=== PATIENT | female | born 1985 | race Caucasian/White ===

== ENCOUNTER 2016-05-09 20:25 | Emergency (ER) | payer BC, OTHER ==
[2016-05-09 20:36] VITALS: TEMP 97.5; BMI 33.4
[2016-05-09] MEDS ORDERED: ONDANSETRON 4 MG/2 ML VIAL IVPUSH ONE ×2 (20:40→20:46)
[2016-05-09] MEDS ORDERED: SODIUM CHLORIDE 1,000 ML IV ONE ×2 (20:41→20:49)
[2016-05-09] MEDS ORDERED: ONDANSETRON 4 MG/2 ML VIAL ONE ×2 (20:42→20:44)
--- NOTE | 2016-05-09 20:49 | PDOC ---
History of Present Illness - General History Source: Patient Exam Limitations: No Limitations - History of Present Illness Initial Comments: 05/09/16 21:27 The patient is a 31 year old female, with no significant past medical history who presents to the emergency department with nausea and vomiting for about 3 days. She reports having multiple episode of vomiting and diarrhea. She reports noting some blood in her vomiting yesterday. She reports she has been unable to keep down any liquids or solids secondary to her vomiting. She reports also having abdominal pain which she ranks a 5/10 in pain intensity. The patient also reports since 04/21/15 having a productive cough (bringing up yellow/ brownish fluid) that has not been alleviated with prednisone as prescribed by her PCP. She denies chills, headache and dizziness. She denies diarrhea and constipation. Reports her last bowel movement was normal. PAST SURGICAL HISTORY: No significant history. FAMILY HISTORY: No pertinent history. SOCIAL HISTORY: Patient lives with family and is employed. MEDICATIONS: Reviewed. ALLERGIES: As per nursing notes. ROS General: No chills, no weakness, no weight loss HEENT: No change in vision. No sore throat. No ear pain CardioVascular: No chest pain or shortness of breath Respiratory:Yes cough. Gastrointestinal: Yes nausea, vomiting No diarrhea or constipation. No rectal bleeding Genitourinary: No dysuria, hematuria, or frequency Musculoskeletal: No joint or muscle pain or swelling Neurologic: No headache, vertigo, dizziness or loss of consciousness Psychiatric: No depression Skin: No rashes or easy bruising Endocrine: no increased thirst or abnormal weight change Allergic: no skin or latex allergy All other systems reviewed and normal Exam: General: Well-nourished well-developed individual, no acute distress HEENT: Throat: Normal, tonsils normal, no erythema or exudate. Mucous membranes. Neck: Supple, no meningeal signs, no lymphadenopathy Eyes: Pupils equal reactive and round, extraocular motion intact Chest: Nontender to palpation Cardiac: S1-S2 normal, regular rate and rhythm, no murmurs rubs or gallops Respiratory: Lungs clear to auscultation bilateral. Noted to have moist cough with deep inspiration. Abdomen: Soft, nondistended, normal bowel sounds, moderate tenderness epigastric and RUQ. No guarding or rebound. Extremities: Warm, dry, no cyanosis, clubbing, or edema Skin: No rashes Neuro: Alert and oriented x3, nonfocal exam, grossly intact, normal gait Psych: Normal mood and affect <Jonathan Gao - Last Filed: 05/09/16 21:27> - General History Source: Patient Exam Limitations: No Limitations - History of Present Illness Initial Comments: 05/09/16 22:37 A portion of this note was documented by scribe services under my direction. I have reviewed the details of the note, within reason, and agree with the documentation. The case summary and management plan written by me. Assessment and plan: This is a 31-year-old seen complaining of upper respiratory tract symptoms times approximately 3 weeks for which she has already been on Augmentin, prednisone, albuterol inhaler and she had a chest x- ray here that was normal. Patient was noted to be coughing in the emergency room and appeared to be a relatively dry cough. Patient's O2 sat here in the emergency room was 97%. And her vitals were otherwise unremarkable with the exception of a tachycardia. Patient's tachycardia most likely was secondary to dehydration secondary to multiple episodes of vomiting. Patient also was having some mild epigastric discomfort for which she was given Reglan and Maalox with improvement of the epigastric discomfort. After the second liter of fluid patient felt better however did not feel completely back to her baseline. In discussion with patient she was upset that I had not sent labs and had only done a chest x-ray. I did offer at that point to continue to hydrate her with more fluid and send basic CBC and chemistry labs. I explained to her that her symptoms were consistent with a virus that it did not warrant any additional antibiotics at this time. That she was tolerating by mouth's and that I would like to continue to give her some additional fluid until her heart rate was below 100 and she was able to give us some urine that we would know she was fully hydrated. Patient's heart rate at discharge was 106 which was much improved from the 123 when she came in. Patient did not want to stay in the emergency room any longer and requested that I take the IV out and she be discharged home. A prescription was sent to patient's pharmacy for Zofran she was given vomiting discharge instructions and told to follow-up with her primary care doctor in 1- 2 days if she continued to feel poorly. <Ana Paula Schilling I - Last Filed: 05/10/16 00:08> - General Stated Complaint: NAUSEA & VOMTING X 3 DAYS Time Seen by Provider: 05/09/16 20:45 Past History <Jonathan Gao - Last Filed: 05/09/16 21:27> - Surgical History Cholecystectomy: Yes ([facility]) - Psycho/Social/Smoking Cessation Hx Anxiety: No Suicidal Ideation: No Smoking History: Current every day smoker Number of Cigarettes Smoked Daily: 5 Information on smoking cessation initiated: Yes 'Breaking Loose' booklet given: 01/26/14 Hx Alcohol Use: Yes (SOCIAL) Drug/Substance Use Hx: No Substance Use Type: None <Ana Paula Schilling I - Last Filed: 05/10/16 00:08> - Past Medical History Allergies/Adverse Reactions: Allergies Allergy/AdvReac Type Severity Reaction Status Date / Time clarithromycin [From Biaxin] Allergy Mild Hives Verified 05/09/16 20:29 Home Medications: Ambulatory Orders Ondansetron [Zofran Odt -] 4 mg SL TID #10 od.tablet 05/09/16 *Physical Exam - Vital Signs Last Vital Signs Temp Pulse Resp BP Pulse Ox 97.5 F L 123 H 18 156/108 97 05/09/16 20:28 05/09/16 20:28 05/09/16 20:28 05/09/16 20:28 05/09/16 20:28 <Jonathan Gao - Last Filed: 05/09/16 21:27> - Vital Signs Last Vital Signs Temp Pulse Resp BP Pulse Ox 97.5 F L 123 H 18 156/108 97 05/09/16 20:28 05/09/16 20:28 05/09/16 20:28 05/09/16 20:28 05/09/16 20:28 <Ana Paula Schilling I - Last Filed: 05/10/16 00:08> ED Treatment Course - Medications Given in the ED: ED Medications Discontinued Medications Generic Name Dose Route Start Last Admin Trade Name Freq PRN Reason Stop Dose Admin Ondansetron HCl 4 mg 05/09/16 20:40 05/09/16 20:41 Zofran Injection IVPUSH 05/09/16 20:41 4 mg NOW ONE Administration Ondansetron HCl 4 mg 05/09/16 20:46 05/09/16 20:46 Zofran Injection IVPUSH 05/09/16 20:47 4 mg NOW ONE Administration <Jonathan Gao - Last Filed: 05/09/16 21:27> - Medications Given in the ED: ED Medications Discontinued Medications Generic Name Dose Route Start Last Admin Trade Name Anton PRN Reason Stop Dose Admin Ondansetron HCl 4 mg 05/09/16 20:40 05/09/16 20:41 Zofran Injection IVPUSH 05/09/16 20:41 4 mg NOW ONE Administration Ondansetron HCl 4 mg 05/09/16 20:46 05/09/16 20:46 Zofran Injection IVPUSH 05/09/16 20:47 4 mg NOW ONE Administration <Ana Paula Schilling I - Last Filed: 05/10/16 00:08> *DC/Admit/Observation/Transfer - Attestations Scribe Attestion: 05/09/16 21:27 Documentation prepared by Jonathan Gao, acting as director biomedical engineering for Ana Paula Schilling MD. <Jonathan Gao - Last Filed: 05/09/16 21:27> - Discharge Dispostion Admit: No <Ana Paula Schilling I - Last Filed: 05/10/16 00:08> Diagnosis at time of Disposition: Dehydration, Nausea & vomiting - Discharge Dispostion Disposition: HOME Condition at time of disposition: Good - Prescriptions Prescriptions: Ondansetron [Zofran Odt -] 4 mg SL TID #10 od.tablet - Patient Instructions Printed Discharge Instructions: DI for Vomiting -- Adult Additional Instructions: Clear liquids only for the next 6 hours.. If you vomit again U can take Zofran 1 tablet as often as every 6-8 hours. After that if you have had no further vomiting you may have bananas, rice, applesauce, or toast. If no further vomiting for another 8 hours you may have regular food. If you vomit again then nothing to eat or drink for 2 hours. then start back with the clear liquids. Return to the emergency department immediately with ANY new, persistent or worsening symptoms. You MUST call and follow up with your doctor tomorrow if not better. Please make sure your doctor reviews the results of your emergency evaluation.
[2016-05-09] MEDS ORDERED: FAMOTIDINE 20 MG/50 ML IVPB 50 ML IVPB ONE ×2 (21:25→21:36)
[2016-05-09] MEDS ORDERED: MAG HYDROX/AL HYDROX/SIMETH 355 ML ORAL.SUSP PO ONE (22:47)
[2016-05-09] MEDS ORDERED: METOCLOPRAMIDE HCL INJECTION 10 MG/2 ML VIAL IVPUSH ONE (22:47)
[2016-05-09] MEDS ORDERED: MAG HYDROX/AL HYDROX/SIMETH 30 ML UNIT-DOSE CUP ONE (22:47)
[2016-05-09 23:44] VITALS: BP 124/84; PULSE 106
== END 2016-05-10 00:08 | disposition home or self-care (01) ==
LOC: FER 20:25
PROC: 3E033GC Introduction of Other Therapeutic Substance into Peripheral Vein, Percutaneous Approach (ICD-10-PCS; principal; 2016-05-09)
PROC: 3E0337Z Introduction of Electrolytic and Water Balance Substance into Peripheral Vein, Percutaneous Approach (ICD-10-PCS; 2016-05-09)
DX: R11.2 Nausea with vomiting, unspecified (principal); E86.0 Dehydration; F17.210 Nicotine dependence, cigarettes, uncomplicated
CPT/HCPCS: 71010-TC; 99283-25

== ENCOUNTER 2017-01-13 16:20 | Emergency (ER) | payer BC, OTHER ==
--- NOTE | 2017-01-13 16:25 | PDOC ---
History of Present Illness <Louis Agustin - Last Filed: 01/13/17 17:37> - History of Present Illness Initial Comments: 01/13/17 16:36 The patient is a 31 year old female, with no significant past medical history, who presents to the emergency department with left lower extremity pain for 6 days (since Friday). Patient describes pain as a hot sensation, worsens when standing and ambulating. Patient states she has taken Toradol, Tylenol, and Motrin without much relief. Patient is a former smoker and recently quit (77 days ago). She does not know if she has a familial history of blood clots or DVT , she is adopted. She denies recent fevers, chills, headache or dizziness. She denies recent nausea, vomit, diarrhea or constipation. She denies recent dysuria, frequency, urgency or hematuria. She denies recent chest pain or shortness of breath. Allergies: clarithromycin Past surgical history: None reported. Social history: Former smoker (quit 77 day sago). Denies EtOH use and recreational drug use. <Violetta Corea - Last Filed: 01/13/17 17:43> - General Chief Complaint: Pain Stated Complaint: LEFT LOWER LEG PAIN Time Seen by Provider: 01/13/17 16:24 Past History - Surgical History Cholecystectomy: Yes ([facility]) - Suicide/Smoking/Psychosocial Hx Smoking History: Current every day smoker Number of Cigarettes Smoked Daily: 5 'Breaking Loose' booklet given: 01/26/14 Hx Alcohol Use: Yes (SOCIAL) Drug/Substance Use Hx: No Substance Use Type: None <Louis Agustin - Last Filed: 01/13/17 17:37> <Violetta Corea - Last Filed: 01/13/17 17:43> - Past Medical History Allergies/Adverse Reactions: Allergies Allergy/AdvReac Type Severity Reaction Status Date / Time clarithromycin [From Biaxin] Allergy Mild Hives Verified 01/13/17 16:24 Home Medications: Ambulatory Orders Bupropion HCl [Wellbutrin Xl] 300 mg PO DAILY 01/13/17 Ibuprofen [Motrin -] 600 mg PO QID #28 tablet 01/13/17 Ketorolac Tromethamine [Toradol] 10 mg PO TID 01/13/17 Oxycodone HCl/Acetaminophen [Percocet 5-325 mg Tablet] 1 - 2 tab PO Q4H #20 tablet MDD 6 01/13/17 Review of Systems - Review of Systems Comments:: 01/13/17 16:39 GENERAL/CONSTITUTIONAL: No fever or chills. No weakness. HEAD, EYES, EARS, NOSE AND THROAT: No change in vision. No ear pain or discharge. No sore throat. CARDIOVASCULAR: No chest pain or shortness of breath. RESPIRATORY: No cough, wheezing, or hemoptysis. GASTROINTESTINAL: No nausea, vomiting, diarrhea or constipation. GENITOURINARY: No dysuria, frequency, or change in urination. MUSCULOSKELETAL: + LLE pain and spams. No neck or back pain. SKIN: No rash NEUROLOGIC: No headache, vertigo, loss of consciousness, or change in strength/ sensation. ENDOCRINE: No increased thirst. No abnormal weight change. HEMATOLOGIC/LYMPHATIC: No anemia, easy bleeding, or history of blood clots. ALLERGIC/IMMUNOLOGIC: No hives or skin allergy. <Violetta Corea - Last Filed: 01/13/17 17:43> *Physical Exam - Vital Signs Last Vital Signs Temp Pulse Resp BP Pulse Ox 98.5 F 98 H 18 127/88 100 01/13/17 16:20 01/13/17 16:20 01/13/17 16:20 01/13/17 16:20 01/13/17 16:20 - Physical Exam Comments: 01/13/17 16:37 GENERAL: Awake, alert, and fully oriented, in no acute distress HEAD: No signs of trauma EYES: PERRLA, EOMI, sclera anicteric, conjunctiva clear ENT: Auricles normal inspection, hearing grossly normal, nares patent, oropharynx clear without exudates. Moist mucosa NECK: Normal ROM, supple, no lymphadenopathy, JVD, or masses LUNGS: Breath sounds equal, clear to auscultation bilaterally. No wheezes, and no crackles HEART: Regular rate and rhythm, normal S1 and S2, no murmurs, rubs or gallops ABDOMEN: Soft, nontender, normoactive bowel sounds. No guarding, no rebound. No masses EXTREMITIES: + Cords and muscle spasms in LLE. No pain with dorsiflexion. Normal range of motion, no edema. No clubbing or cyanosis. No erythema. No RLE pain or tenderness. NEUROLOGICAL: Cranial nerves II through XII grossly intact. Normal speech, normal gait SKIN: Warm, Dry, normal turgor, no rashes or lesions noted. <Violetta Corea - Last Filed: 01/13/17 17:43> ED Treatment Course - RADIOLOGY Radiograph Interpretation: 01/13/17 17:43 Ultrasound: Lower extremities venous. Tech Impressions: negative DVT of left leg. <Vioeltta Corea - Last Filed: 01/13/17 17:43> *DC/Admit/Observation/Transfer - Discharge Dispostion Admit: No - Attestations Physician Attestion: 01/13/17 16:25 I, Dr. Louis Agustin, attest that this document has been prepared under my direction and personally reviewed by me in its entirety. I further attest, that it accurately reflects all work, treatment, procedures and medical decision -making performed by me. <Louis Agustin - Last Filed: 01/13/17 17:37> - Attestations Scribe Attestion: 01/13/17 16:44 Documentation prepared by Violetta Corea, acting as center medical and lab director for Louis Agustin DO. <Violetta Corea - Last Filed: 01/13/17 17:43> Diagnosis at time of Disposition: Calf pain Qualifiers: Laterality: left Qualified Code(s): M79.662 - Pain in left lower leg - Discharge Dispostion Disposition: HOME Condition at time of disposition: Improved - Prescriptions Prescriptions: Ibuprofen [Motrin -] 600 mg PO QID #28 tablet Oxycodone HCl/Acetaminophen [Percocet 5-325 mg Tablet] 1 - 2 tab PO Q4H #20 tablet MDD 6 - Referrals Referrals: Dillon Hess MD [Staff Physician] - - Patient Instructions Printed Discharge Instructions: DI for Calf Muscle Strain Additional Instructions: Kimberlyn - Your ultrasound does not show any clot. I believe that this is muscle pain. Please follow up with Orthopedics. Use the motrin for pain, if you have to take the percocet but bear in mind it is addicting and it may upset your stomach. Best- Dr. Louis Agustin
[2017-01-13 16:29] VITALS: BP 127/88; PULSE 98; TEMP 98.5; BMI 34.9
[2017-01-13] MEDS ORDERED: IBUPROFEN 400 MG TABLET (FP) PO ONE (17:32)
[2017-01-13] MEDS ORDERED: IBUPROFEN 600 MG TABLET (FP) PO ONE (17:37)
== END 2017-01-13 17:45 | disposition home or self-care (01) ==
LOC: FER 16:20
DX: M79.662 Pain in left lower leg (principal); F17.210 Nicotine dependence, cigarettes, uncomplicated
CPT/HCPCS: 93971-TC; 99283-25

== ENCOUNTER 2023-07-15 17:27 | Emergency (ER) | payer BC, OTHER ==
[2023-07-15 17:58] VITALS: BP 149/87; PULSE 95; RESP 18; TEMP 98.2; BMI 39.5
== END 2023-07-15 18:11 | disposition home or self-care (01) ==
LOC: FER 17:27
DX: S60.512A Abrasion of left hand, initial encounter (principal); L03.114 Cellulitis of left upper limb; W55.03XA Scratched by cat, initial encounter
CPT/HCPCS: 99283-25